=== PATIENT | female | born 1965 | race Hispanic/Latino ===

== ENCOUNTER 2021-09-30 00:18 | Emergency (ER) | payer MEDICAID ==
[2021-09-30 01:10] LABS: Bilirubin 1+ (Negative); Blood, Urine 250 (Negative); Clarity Cloudy (Clear); Glucose, Urine (Dipstick) Normal (Negative); Ketone, Urine 5 mg/dL (Negative); Leukocyte 500 (Negative); Nitrite Positive (Negative); Protein, Urine (Dipstick) 100 mg/dl (Neg-Trace); Specific Gravity, Urine 1.025 (1.002-1.036)
[2021-09-30 01:18] LABS: Bacteria/HPF Rare-Few HPF (None Seen); RBC/HPF Greater than 50 HPF (0-3); Squamous Epithelial 0-3 HPF (0-3); WBC/HPF Greater Than 50 HPF (0-3)
[2021-09-30] MEDS ORDERED: Sterile Water 10 ML ONE (01:20)
[2021-09-30] MEDS ORDERED: Ketorolac Tromethamine 30 MG/ML VIAL ONE (01:20)
[2021-09-30] MEDS ORDERED: cefTRIAXone\\ROCEPHIN 1 GM VIAL ONE (01:20)
== END 2021-09-30 01:46 | disposition home or self-care (01) ==
LOC: CSHERS 00:18
DX: N39.0 Urinary tract infection, site not specified (principal); E11.9 Type 2 diabetes mellitus without complications; E66.9 Obesity, unspecified
CPT/HCPCS: 81003; 81015; 87077; 87086; 87186; 96372; 99283; J0696; J1885

== ENCOUNTER 2022-05-21 14:00 | Emergency (ER) | payer OTHER, SELFPAY | END 2022-05-21 15:06 | disposition home or self-care (01) | LOC: CSHERS 14:00 | DX: S43.401A Unspecified sprain of right shoulder joint, initial encounter (principal); W19.XXXA Unspecified fall, initial encounter ==

== ENCOUNTER 2022-08-04 15:30 | Emergency (ER) | payer OTHER, SELFPAY | END 2022-08-04 17:51 | disposition home or self-care (01) | LOC: CSHERS 15:30 | DX: T20.03XA Burn of unspecified degree of chin, initial encounter (principal); E66.9 Obesity, unspecified; E11.9 Type 2 diabetes mellitus without complications; X12.XXXA Contact with other hot fluids, initial encounter | CPT/HCPCS: 99283 ==

== ENCOUNTER 2022-10-02 14:26 | Emergency (ER) | payer OTHER ==
[2022-10-02 15:18] LABS: Bilirubin 1+ (Negative); Blood, Urine 150 (Negative); Clarity Cloudy (Clear); Glucose, Urine (Dipstick) 50 mg/dL (Negative); Ketone, Urine 5 mg/dL (Negative); Leukocyte 500 (Negative); Nitrite Negative (Negative); Protein, Urine (Dipstick) 100 mg/dl (Neg-Trace); Specific Gravity, Urine 1.025 (1.005-1.030)
[2022-10-02 15:28] LABS: RBC/HPF 21-50 HPF (0-3); Squamous Epithelial 21-50 HPF (0-3); WBC/HPF Greater than 50 HPF (0-3)
[2022-10-02 15:29] LABS: Bacteria/HPF 3+ HPF (None Seen); Trichomonas/HPF 2+ HPF (None Seen)
[2022-10-02 15:30] LABS: Mucous/LPF 2+ LPF (<2+)
[2022-10-02] MEDS ORDERED: Morphine 4 MG/ML VIAL ONE (15:38)
[2022-10-02 16:08] LABS: #Basophils 0.1 10x3/uL (0.0-0.2); #Eosinphils 0.2 10x3/uL (0.0-0.5); #Monocytes 0.5 10x3/uL (0.0-1.1); #Neutrophils 4.2 10x3/uL (1.5-8.4); %Basophils 0.6 % (0.0-2.0); %Eosinophils 2.4 % (0.0-6.0); %Lymphocytes 38.5 % (18.0-47.0); %Monocytes 6.6 % (0.0-10.0); %Neutrophils 51.8 % (40.0-75.0); Hemoglobin 14.1 g/dL (12.0-15.5); Mean Corpuscular HGB CONC 33.1 g/dL (32.0-36.0); Mean Corpuscular Hemoglobin 27.6 pg (27.0-33.0); Mean Corpuscular Volume 83.4 fl (81.6-98.3); Mean Platelet Volume 13.1 fl (7.4-10.4); Platelet Count 123 10x3/uL (150-450); RBC Distribution Width 13.8 % (11.5-14.5); Red Blood Cell (RBC) Count 5.11 10x6/uL (3.90-5.03); White Blood Cell (WBC) Count 8.1 10x3/uL (3.5-10.5)
[2022-10-02 16:23] LABS: ALT (SGPT) 27 U/L (8-55); AST (SGOT) 33 U/L (5-34); Albumin 3.6 g/dL (3.5-5.0); Alkaline Phosphatase 128 U/L (40-110); Anion Gap 12 mmol/L (10-20); BUN (Urea Nitrogen) 15 mg/dL (9.8-20.1); Bilirubin, Total 0.9 mg/dL (0.2-1.2); Calc. Creatinine Clearance 0 mL/min (70-130); Calcium 9.2 mg/dL (7.8-10.44); Carbon Dioxide 25 mmol/L (22-29); Chloride 103 mmol/L (98-107); Estimated GFR 96; Globulin 4.6 g/dL (2.4-3.5); Glucose 178 mg/dL (70-105); Magnesium 1.5 mg/dL (1.6-2.6); Potassium 3.8 mmol/L (3.5-5.1); Protein, Total 8.2 g/dL (6.0-8.3); Sodium 136 mmol/L (136-145)
[2022-10-02] MEDS ORDERED: cefTRIAXone (ROCEPHIN) 1 GM VIAL ONE (16:52)
== END 2022-10-02 17:14 | disposition home or self-care (01) ==
LOC: CSHERS 14:26
DX: N10 Acute pyelonephritis (principal); E11.9 Type 2 diabetes mellitus without complications
CPT/HCPCS: 74176; 80053; 81003; 81015; 83735; 85025; 96365; 96375; J0696; J2270

== ENCOUNTER 2023-05-11 19:26 | Emergency (ER) | payer OTHER, SELFPAY ==
[2023-05-11] MEDS ORDERED: Acetaminophen 500 MG TAB ONE (20:14)
[2023-05-11 21:03] LABS: SARS-CoV-2 NAA Rapid Test Not Detected (NotDetected)
[2023-05-11] MEDS ORDERED: Ketorolac Tromethamine 30 MG/ML VIAL ONE (21:59)
== END 2023-05-11 22:10 | disposition home or self-care (01) ==
LOC: CSHERS 19:26
DX: J06.9 Acute upper respiratory infection, unspecified (principal); L03.317 Cellulitis of buttock; E11.9 Type 2 diabetes mellitus without complications; Z20.822 Contact with and (suspected) exposure to COVID-19
CPT/HCPCS: 96372; 99283; J1885

== ENCOUNTER 2023-05-16 19:47 | Emergency (ER) | payer SELFPAY ==
[~2023-05-16 19:47] MED LIST: Rocuronium Bromide 50 MG/5 ML VIAL ONE
[2023-05-16] MEDS ORDERED: dilTIAZem 25 MG/5 ML VIAL ONE (20:17)
[2023-05-16] MEDS ORDERED: Azithromycin 500 MG VIAL ONE (20:17)
[2023-05-16] MEDS ORDERED: cefTRIAXone (ROCEPHIN) 1 GM VIAL ONE (20:17)
[2023-05-16 20:39] LABS: ALT (SGPT) 23 U/L (8-55); AST (SGOT) 24 U/L (5-34); Albumin 2.9 g/dL (3.5-5.0); Alkaline Phosphatase 130 U/L (40-110); Anion Gap 33 mmol/L (10-20); BUN (Urea Nitrogen) 49 mg/dL (9.8-20.1); Bilirubin, Total 1.5 mg/dL (0.2-1.2); Calc. Creatinine Clearance 0 mL/min (70-130); Calcium 9.6 mg/dL (7.8-10.44); Chloride 87 mmol/L (98-107); Estimated GFR 26; Globulin 4.2 g/dL (2.4-3.5); Potassium 3.6 mmol/L (3.5-5.1); Protein, Total 7.1 g/dL (6.0-8.3); Sodium 124 mmol/L (136-145)
[2023-05-16] MEDS ORDERED: Midazolam HCl 2 mg/2 ml Vial ONE (20:42)
[2023-05-16] MEDS ORDERED: fentaNYL 50 mcg/mL 1 mL Vial ONE (20:42)
[2023-05-16 20:46] LABS: Carbon Dioxide 8 mmol/L (22-29); Glucose 624 mg/dL (70-105); Hematocrit 44.9 % (34.9-44.5); Hemoglobin 14.7 g/dL (12.0-15.5); Mean Corpuscular HGB CONC 32.7 g/dL (32.0-36.0); Mean Corpuscular Hemoglobin 27.2 pg (27.0-33.0); Platelet Count 162 10x3/uL (150-450); RBC Distribution Width 13.1 % (11.5-14.5); Red Blood Cell (RBC) Count 5.41 10x6/uL (3.90-5.03); White Blood Cell (WBC) Count 20.7 10x3/uL (3.5-10.5)
[2023-05-16 21:09] LABS: Magnesium 1.7 mg/dL (1.6-2.6)
[2023-05-16 21:13] LABS: MDiff Complete? YES
[2023-05-16] MEDS ORDERED: NOREPINEPHRINE 8 MG/250 ML-D5W 250 ML ONE (21:13)
[2023-05-16 21:22] LABS: Platelet Adequacy Comment Appears Adequate
[2023-05-16 21:23] LABS: Microcytosis SLIGHT = 6-15 cells (100X) (0-5/hpf)
[2023-05-16 21:24] LABS: Band 7 % (5-11); Eosinophils 1 % (0-10); Lymphocytes 13 % (21-51); Metamyelocyte 1 % (0-0); Monocytes 6 % (0-10); Neutrophil 72 % (42-75)
[2023-05-16 21:40] LABS: SARS-CoV-2 NAA Rapid Test Not Detected (NotDetected)
[2023-05-16] MEDS ORDERED: Propofol 1,000 MG/100 ML VIAL IV ONE (21:47)
[2023-05-16] MEDS ORDERED: INSULIN REGULAR IN 0.9 % NACL 100 UNITS/100 ML BAG ONE (21:47)
[2023-05-16] MEDS ORDERED: Vancomycin 1 GM VIAL ONE (22:11)
[2023-05-16] MEDS ORDERED: NS 0.9% w/ 20 MEQ KCL 1,000 ML ONE (22:48)
[2023-05-16 23:04] LABS: Glucose 526 mg/dL (70-105)
[2023-05-16 23:06] LABS: Bilirubin Neg (Negative); Blood, Urine Negative (Negative); Clarity Slightly Cloudy (Clear); Glucose, Urine (Dipstick) >=1000 mg/dL (Negative); Ketone, Urine 5 mg/dL (Negative); Leukocyte Negative (Negative); Nitrite Negative (Negative); Protein, Urine (Dipstick) 15 mg/dl (Neg-Trace); Urobilinogen Normal mg/dL (Less than 2)
[2023-05-16 23:17] LABS: RBC/HPF None Seen HPF (0-3)
[2023-05-16 23:18] LABS: Bacteria/HPF 2+ HPF (None Seen); CAUTI Indications for Culture Alt mental st,lethar; Squamous Epithelial 0-3 HPF (0-3); WBC/HPF 0-3 HPF (0-3)
[2023-05-16 23:19] LABS: Urine Culture Reflex No No
[2023-05-16 23:30] LABS: Lactic Acid 14.2 mmol/L (0.5-2.2)
[2023-05-16] MEDS ORDERED: Vasopressin 20 UNITS, Admixture Fee 1 EACH in Sodium Chloride 0.9% 50 ML IV SCH (23:30)
[2023-05-17] MEDS ORDERED: NOREPINEPHRINE 8 MG/250 ML-D5W 250 ML ONE (01:00)
[2023-05-17 01:17] LABS: ALT (SGPT) 49 U/L (8-55); AST (SGOT) 95 U/L (5-34); Albumin 2.6 g/dL (3.5-5.0); Alkaline Phosphatase 218 U/L (40-110); Anion Gap 25 mmol/L (10-20); BUN (Urea Nitrogen) 49 mg/dL (9.8-20.1); Bilirubin, Total 1.1 mg/dL (0.2-1.2); Calc. Creatinine Clearance 0 mL/min (70-130); Calcium 9.7 mg/dL (7.8-10.44); Carbon Dioxide 12 mmol/L (22-29); Chloride 95 mmol/L (98-107); Estimated GFR 22; Globulin 4.5 g/dL (2.4-3.5); Potassium 3.6 mmol/L (3.5-5.1); Protein, Total 7.1 g/dL (6.0-8.3); Sodium 128 mmol/L (136-145)
[2023-05-17] MEDS ORDERED: NS 0.9% w/ 20 MEQ KCL 1,000 ML ONE (01:18)
[2023-05-17 01:23] LABS: Glucose 435 mg/dL (70-105)
[2023-05-17 04:38] LABS: Actual Bicarbonate (HCO3a) 8.5 mEq/L (22-28); Analyzer IN Cardio CS ER; Base Excess (BEa) -22.5 mEq/L (-2.0 to +3.0); CO2 Tension 36.8 mmHg (35.0-45.0); Calcium, Ionized (arterial) 1.24 mmol/L (1.12-1.30); Hematocrit-ABG 44 % (36.0-47.0); O2 Tension (PaO2), arterial 161.1 mmHg (80.0-100.0); Potassium - ABG Lab 3.77 mmol/L (3.70-5.30); Puncture Site RRA; pH, Arterial 6.982 (7.35-7.45)
== END 2023-05-17 01:51 | disposition short-term general hospital (02) ==
LOC: CSHERS 19:47
DX: E11.10 Type 2 diabetes mellitus with ketoacidosis without coma (principal); J95.821 Acute postprocedural respiratory failure; I48.20 Chronic atrial fibrillation, unspecified; A41.9 Sepsis, unspecified organism
CPT/HCPCS: 31500; 36415; 36416; 36556; 36600; 51702; 71045; 71250; 74177; 80053; 81001; 82010; 82271; 82805; 83605; 83735; 84484; 85025; 85379; 87040; 87077; 87186; 93005; 93010; 96372; 96374; 96375; 96376; 99292; J0456; J0696; J1650; J1815; J2250; J2704; J3010; J3370; J3480